=== PATIENT | female | born 1990 ===

== ENCOUNTER 2018-10-03 01:08 | Emergency (ER) | payer MEDICAID ==
[2018-10-03 01:09] VITALS: BMI 30.4
--- NOTE | 2018-10-03 02:38 | ED PDOC ---
HPI: Female Pain Time Seen by Provider: 10/03/18 01:20 Chief Complaint (Nursing): Female Genitourinary Chief Complaint (Provider): Female Genitourinary History Per: Patient History/Exam Limitations: no limitations Onset/Duration Of Symptoms: Days (x1) Quality Of Discomfort: Cramping Associated Symptoms: denies: Fever, Chills, Nausea, Vomiting Additional Complaint(s): 28 years old female with and no PMHx presents to ER for an evaluation of lower abd pain and tiny spotting ("pink tinged") after she wiped herself after urinating in the bathroom to urinate. Patient reports she had a positive home test. She states her LNMP was back in May. Patient denies fever, chills, nausea and vomiting. PMD: Valentino Becker : 2 Para: 1 Past Medical History Reviewed: Historical Data, Nursing Documentation, Vital Signs Vital Signs: Last Vital Signs Temp 98.2 F 10/03/18 01:20 Pulse 90 10/03/18 01:20 Resp 18 10/03/18 01:20 BP 124/83 10/03/18 01:20 Pulse Ox 98 10/03/18 01:20 - Medical History PMH: No Chronic Diseases - Surgical History Surgical History: No Surg Hx - Family History Family History: States: Diabetes - Social History Current smoker - smoking cessation education provided: No Alcohol: None Drugs: Denies - Home Medications Home Medications: Ambulatory Orders Medication Instructions Recorded Fluconazole [Diflucan] 150 mg PO QWK #4 tab 01/06/16 Ketoconazole 60 gm TP DAILY #1 cream..g. 01/06/16 Tramadol HCl [Ultram] 50 mg PO Q6 #15 tab 01/06/16 predniSONE [predniSONE Tab] 3 tab PO DAILY #15 tab 04/08/16 valACYclovir [Valtrex] 1 tab PO TID #21 tab 04/08/16 - Allergies Allergies/Adverse Reactions: Allergies Allergy/AdvReac Type Severity Reaction Status Date / Time No Known Allergies Allergy Verified 04/08/16 11:59 Review of Systems ROS Statement: Except As Marked, All Systems Reviewed And Found Negative Constitutional: Negative for: Fever, Chills Gastrointestinal: Positive for: Abdominal Pain (cramping). Negative for: Nausea, Vomiting Genitourinary Female: Positive for: Vaginal Bleeding (spotting) Physical Exam - Reviewed Nursing Documentation Reviewed: Yes Vital Signs Reviewed: Yes - Physical Exam Appears: Positive for: Well, No Acute Distress Head Exam: Positive for: ATRAUMATIC, NORMOCEPHALIC Skin: Positive for: Normal Color, Warm, Dry Eye Exam: Positive for: Normal appearance, EOMI, PERRL Neck: Positive for: Normal, Painless ROM, Supple Cardiovascular/Chest: Positive for: Regular Rate, Rhythm. Negative for: Murmur Respiratory: Positive for: Normal Breath Sounds. Negative for: Respiratory Distress Gastrointestinal/Abdominal: Positive for: Normal Exam, Soft, Tenderness (mild suprapubic tend) Back: Positive for: Normal Inspection. Negative for: L CVA Tenderness, R CVA Tenderness Extremity: Positive for: Normal ROM. Negative for: Pedal Edema, Deformity Neurological/Psych: Positive for: Awake, Alert, Oriented (x3) - Laboratory Results Result Diagrams: 10/03/18 03:15 10/03/18 03:15 - ECG O2 Sat by Pulse Oximetry: 98 (RA) Pulse Ox Interpretation: Normal Medical Decision Making Medical Decision Making: Time: 224 Initial Plan: vag spotting, early rule out ectopic --Type and screen --Beta-HCG --CMP --CBC --Urine culture --Urinalysis --Transvaginal US 431 Transvaginal US Findings: The uterus measures 10.7x6.4x4.4 cm. Anteverted uterus. The endometrium is normal in thickness measuring 8.6 cm. Unremarkable cervical length measuring 3.5 cm. No evidence of intrauterine . Normal ovaries. Impression: No intrauterine seen. Unremarkable exam. 517 --Labs reviewed and demonstrate HCG of 39, which is below threshold. US shows no singficant abnormality --Patient is Rh+ and is aware of her eleavted LFTs --Patient is stable for discharge home and instructed to followup with a gynecologistfor repeat testing - which she has one. ScribeAttestation: Documented byJia Ardon, acting as a scribe for Charlotte Steward MD. Provider ScribeAttestation: All medical record entries made by the Scribe were at my direction and personally dictated by me. I have reviewed the chart and agree that the record accurately reflects my personal performance of the history, physical exam, medical decision making, and the department course for this patient. I have also personally directed, reviewed, and agree with the discharge instructions and disposition. Disposition - Clinical Impression Clinical Impression: Elevated liver function tests, Pelvic pain - Patient ED Disposition Is Patient to be Admitted: No Counseled Patient/Family Regarding: Studies Performed, Diagnosis, Need For Fo llowup - Disposition Disposition: Routine/Home Disposition Time: 05:18 Condition: IMPROVED Additional Instructions: follow up with your drill press operator for metal in 2 days return to the ED with any worsening or concerning symptoms Instructions: Stomach Pain in Early Forms: [employer] (Sammarinese)
[2018-10-03 03:35] LABS: SQUAMOUS EPITHIAL 7 /hpf (0-5); URINE BILIRUBIN NEGATIVE (NEGATIVE); URINE CLARITY SLIGHTY-CLOUDY (Clear); URINE COLOR YELLOW (YELLOW); URINE GLUCOSE (UA) NEG (NEGATIVE); URINE LEUKOCYTE ESTERASE TRACE Leu/uL (Negative); URINE PROTEIN NEGATIVE (NEGATIVE); URINE UROBILINOGEN 0.2-1.0 mg/dL (0.2-1.0)
[2018-10-03 03:36] LABS: BASO % 0.4 % (0.0-2.0); EOS # 0.2 K/uL (0.0-0.7); EOS % 1.5 % (0.0-4.0); HEMOGLOBIN 13.2 g/dL (12.0-16.0); LYMPH # 3.5 K/uL (1.0-4.3); MEAN CELL VOLUME 90.8 fl (81.0-99.0); MEAN CORPUSCULAR HEMOGLOBIN 30.3 pg (27.0-31.0); MEAN CORPUSCULAR HGB CONC 33.4 g/dL (33.0-37.0); MEAN PLATELET VOLUME 7.5 fl (7.2-11.7); MONO # 0.8 K/uL (0.0-0.8); MONO % 7.4 % (0.0-10.0); NEUT # 5.8 K/uL (1.8-7.0); NEUT % 56.7 % (50.0-75.0); NRBC % 0.1 % (0.0-0.0); RBC 4.37 Mil/uL (3.80-5.20); RED CELL DISTRIBUTION WIDTH 12.3 % (11.5-14.5); WHITE BLOOD COUNT 10.3 K/uL (4.8-10.8)
[2018-10-03 03:42] LABS: ALB/GLOB RATIO 1.3 (1.0-2.1); ALBUMIN 4.1 g/dL (3.5-5.0); ALT/SGPT 122 U/L (9-52); AST/SGOT 51 U/L (14-36); BLOOD UREA NITROGEN 12 mg/dl (7-17); CALCIUM 9.1 mg/dL (8.4-10.2); GFR NON-AFRICAN AMERICAN > 60; URINE BLOOD TRACE (NEGATIVE)
[2018-10-03 05:11] VITALS: BP 128/82; PULSE 76; RESP 16; TEMP 98.3
[2018-10-03 05:22] VITALS: O2SAT 98
--- NOTE | 2018-10-03 11:58 | US ---
Date of service: 10/03/2018 HISTORY: spotting preg COMPARISON: None available. TECHNIQUE: Transvaginal pelvic ultrasound was performed. FINDINGS: UTERUS: Measures 10.7 x 6.4 x 4.4 cm. Normal in size and appearance. No fibroid or other mass lesion seen. ENDOMETRIUM: Measures 8.6 mm in diameter. The central endometrial echo complex is normal in appearance. No evidence for intrauterine gestational sac. CERVIX: No cervical abnormality identified. RIGHT OVARY: Measures 4.0 x 2.5 x 1.9 cm. No solid mass. Normal flow. LEFT OVARY: Measures 4.0 x 2.4 x 2.6 cm. No solid mass. Normal flow. FREE FLUID: No significant free fluid noted. OTHER FINDINGS: None. IMPRESSION: No evidence of intrauterine gestational sac. Normal appearance of the uterus and ovaries. A preliminary report was provided by [employer].
== END 2018-10-03 05:27 | disposition home or self-care (01) ==
LOC: H.ER 01:08
DX: R10.2 Pelvic and perineal pain (principal); R94.5 Abnormal results of liver function studies

== ENCOUNTER 2018-10-10 15:42 | Emergency (ER) | payer MEDICAID ==
[2018-10-10 15:42] VITALS: BMI 30.4
[2018-10-10 16:20] VITALS: RESP 18
[2018-10-10 17:52] LABS: BASO % 0.3 % (0.0-2.0); EOS # 0.1 K/uL (0.0-0.7); EOS % 0.6 % (0.0-4.0); HEMOGLOBIN 13.3 g/dL (12.0-16.0); LYMPH # 2.9 K/uL (1.0-4.3); LYMPH % 29.8 % (20.0-40.0); MEAN CELL VOLUME 90.1 fl (81.0-99.0); MEAN CORPUSCULAR HEMOGLOBIN 30.5 pg (27.0-31.0); MEAN CORPUSCULAR HGB CONC 33.8 g/dL (33.0-37.0); MEAN PLATELET VOLUME 7.5 fl (7.2-11.7); MONO # 0.7 K/uL (0.0-0.8); MONO % 7.3 % (0.0-10.0); NEUT # 6.1 K/uL (1.8-7.0); NRBC % 0.2 % (0.0-0.0); RBC 4.35 Mil/uL (3.80-5.20); RED CELL DISTRIBUTION WIDTH 12.5 % (11.5-14.5); WHITE BLOOD COUNT 9.8 K/uL (4.8-10.8)
[2018-10-10 18:00] LABS: BLOOD UREA NITROGEN 11 mg/dl (7-17); CALCIUM 9.1 mg/dL (8.4-10.2); GFR NON-AFRICAN AMERICAN > 60
[2018-10-10 18:01] LABS: SQUAMOUS EPITHIAL 4 /hpf (0-5); URINE BACTERIA RARE (<OCC); URINE BILIRUBIN NEGATIVE (NEGATIVE); URINE BLOOD LARGE (NEGATIVE); URINE CLARITY CLOUDY (Clear); URINE COLOR YELLOW (YELLOW); URINE GLUCOSE (UA) NEG (NEGATIVE); URINE LEUKOCYTE ESTERASE MOD Leu/uL (Negative); URINE PROTEIN NEGATIVE (NEGATIVE); URINE UROBILINOGEN 0.2-1.0 mg/dL (0.2-1.0)
--- NOTE | 2018-10-10 18:02 | US ---
Date of service: 10/10/2018 HISTORY: 5 weeks , vaginal bleeding Beta HCG results: Pending.. COMPARISON: 10/03/2018. TECHNIQUE: Transvaginal only. Real -time technique with 2D, duplex and color Doppler FINDINGS: UTERUS: Measures 4.6 x 5.5 x 11.2 cm. Normal in size and appearance. No fibroid or other mass lesion seen. ENDOMETRIUM: Measures 20.2 mm in diameter. Markedly thickened endometrial echo complex. This represents a new finding compared to the prior study. Variable echo characteristics particularly centrally may represent fluid or blood within the endometrial canal. No ultrasound findings to suggest gestational sac, mass or polyp or other pathologic process within the endometrium. CERVIX: No cervical abnormality identified. Closed cervix measures 4.67 cm. RIGHT OVARY: Measures 2 x 2.9 x 2.9 cm. No solid mass. Normal flow. Multiple subcentimeter follicles. LEFT OVARY: Measures 1.6 x 2.5 x 3.1 cm. No solid mass. Normal flow. FREE FLUID: No significant free fluid noted. OTHER FINDINGS: None. IMPRESSION: Markedly thickened heterogeneous endometrium. Hyperechoic material/debris may represent components of hemorrhage. No visible intrauterine or visible products of conception.
[2018-10-10 19:04] VITALS: BP 139/78; PULSE 103; TEMP 96.7
[2018-10-10 19:06] VITALS: O2SAT 99
--- NOTE | 2018-10-10 19:06 | ED PDOC ---
HPI: Female Pain Time Seen by Provider: 10/10/18 16:58 Chief Complaint (Nursing): Female Genitourinary Chief Complaint (Provider): Female Genitourinary History Per: Patient History/Exam Limitations: no limitations Onset/Duration Of Symptoms: Days (x1 week) Current Symptoms Are (Timing): Still Present Additional Complaint(s): Patient is a 28 year old female with no past medical history, who presents to the emergency department complaining of vaginal bleeding this afternoon. She is estimated to be for x5 weeks and has irregular periods making it difficult to tract. Her LMP was in May. Patient took a home test x10 days ago and had had vaginal bleeding x1 week ago. She was seen in this ED with an unremarkable work up but the US was unable to detect the fetus. Patient follows up with procurement analyst a couple of days ago who told her that based on beta quantitative levels she is 5 weeks and her levels are rising. She states that the bleeding started today and was associated with lower abdominal cramping no worse on one side. Patient had no passable clots or tissue. PMD: Valentino Becker Past Medical History Reviewed: Historical Data, Nursing Documentation, Vital Signs Vital Signs: Last Vital Signs Temp 98.1 F 10/10/18 16:16 Pulse 86 10/10/18 16:16 Resp 18 10/10/18 16:16 BP 127/82 10/10/18 16:16 Pulse Ox 99 10/10/18 16:16 - Medical History PMH: No Chronic Diseases - Surgical History Surgical History: No Surg Hx - Family History Family History: States: Diabetes - Home Medications Home Medications: Ambulatory Orders Medication Instructions Recorded Fluconazole [Diflucan] 150 mg PO QWK #4 tab 01/06/16 Ketoconazole 60 gm TP DAILY #1 cream..g. 01/06/16 Tramadol HCl [Ultram] 50 mg PO Q6 #15 tab 01/06/16 predniSONE [predniSONE Tab] 3 tab PO DAILY #15 tab 04/08/16 valACYclovir [Valtrex] 1 tab PO TID #21 tab 04/08/16 Nitrofurantoin Macrocrystals 100 mg PO BID #10 cap 10/10/18 [Macrobid] - Allergies Allergies/Adverse Reactions: Allergies Allergy/AdvReac Type Severity Reaction Status Date / Time No Known Allergies Allergy Verified 04/08/16 11:59 Review of Systems ROS Statement: Except As Marked, All Systems Reviewed And Found Negative Gastrointestinal: Positive for: Abdominal Pain Genitourinary Female: Positive for: Vaginal Bleeding Physical Exam - Reviewed Nursing Documentation Reviewed: Yes Vital Signs Reviewed: Yes - Physical Exam Appears: Positive for: Non-toxic, No Acute Distress Head Exam: Positive for: ATRAUMATIC, NORMOCEPHALIC Skin: Positive for: Normal Color, Warm, Dry Eye Exam: Positive for: Normal appearance, EOMI, PERRL ENT: Positive for: Normal ENT Inspection Neck: Positive for: Normal, Painless ROM, Supple Cardiovascular/Chest: Positive for: Regular Rate, Rhythm. Negative for: Murmur Respiratory: Positive for: Normal Breath Sounds. Negative for: Respiratory Distress Gastrointestinal/Abdominal: Positive for: Normal Exam, Soft. Negative for: Tenderness Pelvic Exam: Positive for: Other (Deferred) Back: Positive for: Normal Inspection. Negative for: L CVA Tenderness, Vertebral Tenderness Extremity: Positive for: Normal ROM. Negative for: Pedal Edema, Deformity Neurological/Psych: Positive for: Alert, Oriented - Laboratory Results Result Diagrams: 10/10/18 17:20 10/10/18 17:20 Lab Results: Urine Color Yellow (YELLOW) 10/10/18 17:20 Urine Clarity Cloudy (Clear) 10/10/18 17:20 Urine pH 6.0 (5.0-8.0) 10/10/18 17:20 Ur Specific [place] 1.011 (1.003-1.030) 10/10/18 17:20 Urine Protein Negative mg/dL (NEGATIVE) 10/10/18 17:20 Urine Glucose (UA) Neg mg/dL (NEGATIVE) 10/10/18 17:20 Urine Ketones Negative mg/dL (NEGATIVE) 10/10/18 17:20 Urine Blood Large (NEGATIVE) 10/10/18 17:20 Urine Nitrate Negative (NEGATIVE) 10/10/18 17:20 Urine Bilirubin Negative (NEGATIVE) 10/10/18 17:20 Urine Urobilinogen 0.2-1.0 mg/dL (0.2-1.0) 10/10/18 17:20 Ur Leukocyte Esterase Mod Loni/uL (Negative) 10/10/18 17:20 Urine RBC (Auto) 27 /hpf (0-3) H 10/10/18 17:20 Urine Microscopic WBC 19 /hpf (0-5) H 10/10/18 17:20 Ur Squamous Epith Cells 4 /hpf (0-5) 10/10/18 17:20 Urine Bacteria Rare (<OCC) 10/10/18 17:20 Beta HCG, Quant 182.56 mIU/mL 10/10/18 17:49 - ECG O2 Sat by Pulse Oximetry: 99 (RA) Pulse Ox Interpretation: Normal Medical Decision Making Medical Decision Making: Time: 1658 A/P: --Work up for implantation bleeding vs. 1st trimester miscarriage, repeat labs, Beta quant and repeat US to determine IUP vs. possible ectopic because of new onset pain. Reassess patient. --Type and screen --BMP --Beta-HCG --CBC with differential --Urinalysis -- 1st trimester US Time: 1958 US FINDINGS: UTERUS: Measures 4.6 x 5.5 x 11.2 cm. Normal in size and appearance. No fibroid or other mass lesion seen. ENDOMETRIUM: Measures 20.2 mm in diameter. Markedly thickened endometrial echo complex. This represents a new finding compared to the prior study. Variable echo c haracteristics particularly centrally may represent fluid or blood within the endometrial canal. No ultrasound findings to suggest gestational sac, mass or polyp or other pathologic process within the endometrium. CERVIX: No cervical abnormality identified. Closed cervix measures 4.67 cm. RIGHT OVARY: Measures 2 x 2.9 x 2.9 cm. No solid mass. Normal flow. Multiple subcentimeter follicles. LEFT OVARY: Measures 1.6 x 2.5 x 3.1 cm. No solid mass. Normal flow. FREE FLUID: No significant free fluid noted. OTHER FINDINGS: None. IMPRESSION: Markedly thickened heterogeneous endometrium. Hyperechoic material/debris may represent components of hemorrhage. No visible intrauterine or visible products of conception. Time: 1819 --Beta HCG has increased. --US shows increased thickening of endometrium. --No IUP --Urine shows signs of UTI, will start patient on antibiotics and instructed to follow up with procurement analyst. ------- Scribe Attestation: Documented by Alex Cerna, acting as a scribe Tia José MD. Provider Scribe Attestation: All medical record entries made by the Scribe were at my direction and person ally dictated by me. I have reviewed the chart and agree that the record accurately reflects my personal performance of the history, physical exam, medical decision making, and the department course for this patient. I have also personally directed, reviewed, and agree with the discharge instructions and disposition. Disposition - Clinical Impression Clinical Impression: Urinary tract infection, Vaginal bleeding affecting early - Disposition Disposition Time: 18:20 Condition: STABLE Additional Instructions: Follow up with procurement analyst within 48 hours for repeat labs. Return to the emergency department if you develop worsened pain, fever, or other new symptoms. Prescriptions: Nitrofurantoin Macrocrystals [Macrobid] 100 mg PO BID #10 cap Instructions: Urinary Tract Infections in Adults Forms: [email or web address] ([place]), [facility] ED School/Work Excuse Print Language: SWISS
== END 2018-10-10 18:59 | disposition home or self-care (01) ==
LOC: H.ER 15:42
DX: O20.9 Hemorrhage in early pregnancy, unspecified (principal); O23.41 Unspecified infection of urinary tract in pregnancy, first trimester; Z3A.01 Less than 8 weeks gestation of pregnancy

== ENCOUNTER 2018-10-14 22:18 | Emergency (ER) | payer MEDICAID ==
[2018-10-14 22:28] VITALS: BP 118/85; TEMP 98.7
[2018-10-14 22:29] VITALS: BMI 33.5
[2018-10-14] MEDS ORDERED: Lactated Ringer's 1,000 ML IV STA (22:49)
--- NOTE | 2018-10-14 22:49 | ED PDOC ---
HPI: Female Pain Time Seen by Provider: 10/14/18 22:29 Chief Complaint (Nursing): Female Genitourinary Chief Complaint (Provider): vaginal bleeding History Per: Patient History/Exam Limitations: no limitations Onset/Duration Of Symptoms: Days (10 days) Additional Complaint(s): vaginal bleeding since 10/03/2018 initially was just spotting (seen in this ER for this) and minimal seen again 10/10 for pain and found to have slight increase in betahcg, but no fetus on US seen by OB 10/12 who took beta again and was 240, and bedside sono at that time also did not demonstrate fetus today had large vaginal discharge that was thick and seemed like something more formed some mild crampy pain OB Dr Bass Past Medical History Reviewed: Historical Data, Nursing Documentation, Vital Signs Vital Signs: Last Vital Signs Temp 98.7 F 10/14/18 22:27 Pulse 113 H 10/14/18 22:27 Resp 16 10/14/18 22:27 BP 118/85 10/14/18 22:27 Pulse Ox 97 10/14/18 22:27 - Medical History PMH: No Chronic Diseases - Surgical History Surgical History: No Surg Hx - Family History Family History: States: Diabetes - Social History Current smoker - smoking cessation education provided: No - Home Medications Home Medications: Ambulatory Orders Medication Instructions Recorded Fluconazole [Diflucan] 150 mg PO QWK #4 tab 01/06/16 Ketoconazole 60 gm TP DAILY #1 cream..g. 01/06/16 Tramadol HCl [Ultram] 50 mg PO Q6 #15 tab 01/06/16 predniSONE [predniSONE Tab] 3 tab PO DAILY #15 tab 04/08/16 valACYclovir [Valtrex] 1 tab PO TID #21 tab 04/08/16 Nitrofurantoin Macrocrystals 100 mg PO BID #10 cap 10/10/18 [Macrobid] - Allergies Allergies/Adverse Reactions: Allergies Allergy/AdvReac Type Severity Reaction Status Date / Time No Known Allergies Allergy Verified 10/14/18 22:33 Review of Systems ROS Statement: Except As Marked, All Systems Reviewed And Found Negative (and as per HPI) Gastrointestinal: Positive for: Abdominal Pain Genitourinary Female: Positive for: Vaginal Discharge, Vaginal Bleeding, Pelvic Pain Physical Exam - Reviewed Nursing Documentation Reviewed: Yes Vital Signs Reviewed: Yes - Physical Exam Appears: Positive for: Non-toxic, No Acute Distress Head Exam: Positive for: ATRAUMATIC, NORMOCEPHALIC Skin: Positive for: Warm, Dry. Negative for: Pallor Neck: Positive for: Painless ROM Respiratory: Negative for: Respiratory Distress Gastrointestinal/Abdominal: Positive for: Soft. Negative for: Tenderness, Mass, Distended, Guarding, Rebound - Laboratory Results Result Diagrams: 10/14/18 22:52 Urine POC: Negative - ECG O2 Sat by Pulse Oximetry: 97 - Progress ED Course And Treament: serum beta hcg only 287, which is minimally increased c/w betahcg 10/12 and 10/10 findings c/w miscarriage. Disposition - Clinical Impression Clinical Impression: Miscarriage Counseled Patient/Family Regarding: Studies Performed, Diagnosis, Need For Followup - Disposition Referrals: Lauro Perez MD [Medical Doctor] - (FOLLOW UP ON TUESDAY FOR REEVALUATION) Disposition: Routine/Home Disposition Time: 23:45 Condition: STABLE Additional Instructions: RETURN TO ER FOR BLEEDING MORE THAN A PAD AN HOUR, SEVERE PAIN, FAINTING OR NEAR FAINTING OR ANY OTHER WORRISOME SYMPTOMS Instructions: Miscarriage (DC) Forms: [facility] ED School/Work Excuse, [employer] ([place])
[2018-10-14 23:01] LABS: BASO # 0.1 K/uL (0.0-0.2); BASO % 0.5 % (0.0-2.0); EOS # 0.2 K/uL (0.0-0.7); EOS % 1.5 % (0.0-4.0); HEMOGLOBIN 13.8 g/dL (12.0-16.0); LYMPH # 2.9 K/uL (1.0-4.3); LYMPH % 26.8 % (20.0-40.0); MEAN CELL VOLUME 90.1 fl (81.0-99.0); MEAN CORPUSCULAR HEMOGLOBIN 31.5 pg (27.0-31.0); MEAN CORPUSCULAR HGB CONC 34.9 g/dL (33.0-37.0); MEAN PLATELET VOLUME 7.3 fl (7.2-11.7); MONO # 0.9 K/uL (0.0-0.8); NEUT % 63.2 % (50.0-75.0); NRBC % 0.1 % (0.0-0.0); RBC 4.37 Mil/uL (3.80-5.20); RED CELL DISTRIBUTION WIDTH 12.5 % (11.5-14.5)
[2018-10-15 00:23] VITALS: PULSE 95; RESP 18
[2018-10-16 14:42] VITALS: O2SAT 97
== END 2018-10-15 00:27 | disposition home or self-care (01) ==
LOC: H.ER 22:18
DX: O03.9 Complete or unspecified spontaneous abortion without complication (principal); N89.8 Other specified noninflammatory disorders of vagina
CPT/HCPCS: 81025; 84702; 85025; 96360; 99283; J7120